=== PATIENT | female | born 1970 | race Caucasian/White ===

== ENCOUNTER 2023-09-16 09:15 | Emergency (ER) | payer SELFPAY ==
[~2023-09-16] VITALS: Ht 172.7 cm; Wt 81.8 kg
[2023-09-16 09:27] VITALS: BP 166/99; PULSE 110; RESP 20; O2SAT 98
[2023-09-16] MEDS ORDERED: diphenhdrAMINE HCL 50 MG/1 ML VL IV ONE (09:30)
[2023-09-16] MEDS ORDERED: LORazepam 2MG/ML-1ML VIAL IV ONE (09:30)
[2023-09-16] MEDS ORDERED: HALOPERIDOL LACTATE 5 MG/ML INJ VIAL IM ONE (09:30)
[2023-09-16 10:04] LABS: Hemoglobin 13.2 g/dL (12.2-16.2); Red Blood Cells 3.77 10^6/uL (4.0-5.20); White Blood Cell 4.3 10^3/uL (4.4-10.8)
[2023-09-16 10:07] LABS: Hematocrit 38.9 % (36.0-46.0); Mean Corpuscular Hemoglobin 35.1 pg (28.0-32.0); Mean Corpuscular Volume 103.4 fL (80.0-100.0)
[2023-09-16 10:15] LABS: Alanine Aminotransferase 28 U/L (7-40); Albumin 3.8 g/dL (3.2-4.8); Alkaline Phosphatase 157 U/L (46-116); Anion Gap 8 (5-15); Aspartate Aminotransferase 56 U/L (13-40); Blood Urea Nitrogen 15 mg/dL (9-23); Calcium 9.4 mg/dL (8.5-10.1); Carbon Dioxide 25 mmol/L (20-30); Chloride 107 mmol/L (98-107); Glucose 126 mg/dL (74-106); Potassium 3.6 mmol/L (3.5-5.1); Sodium 140 mmol/L (136-145)
[2023-09-16 10:16] LABS: Bilirubin, Total 2.4 mg/dL (0.2-1.0); Total Protein 6.5 g/dL (5.7-8.2)
[2023-09-16 10:28] LABS: Band Neutrophils % (manual) 0; Basophils % (manual) 0 (0.0-2.0); Blast Cells 0; Metamyelocytes % 0; Myelocytes % 0; Promyelocytes % 0; Reactive Lymphocytes 0
[2023-09-16 10:54] LABS: Salicylate < 3.0 mg/dL (2.8-20.0)
[2023-09-16 11:42] LABS: Eosinophils % (manual) 2 (0-7); Lymphocytes % (manual) 44 (10.0-50.0); Monocytes % (manual) 16 (0-12)
[2023-09-16 11:43] LABS: Macrocytosis Slight; Platelet Estimate Decreased
== END 2023-09-16 09:51 | disposition left against medical advice (07) ==
LOC: ER 09:15 → EDBD 09:15 → EDSEX 09:15 → ER 09:51
DX: F23 Brief psychotic disorder (principal); F31.9 Bipolar disorder, unspecified; Z79.899 Other long term (current) drug therapy
CPT/HCPCS: 36415; 80053; 80320; 80329; 82962; 85007; 85027